=== PATIENT | female | born 1935 | race Two or more races ===

== ENCOUNTER 2020-08-04 11:17 | Inpatient (IN) | payer OTHER ==
[~2020-08-04] VITALS: Ht 157.5 cm; Wt 74.0 kg
[2020-08-04 11:48] LABS: Basophils # (auto) 0.1 10 ^3/uL (0-0.2); Basophils % (auto) 0.5 % (0.0-2.0); Eosinophils # (auto) 0.1 10 ^3/uL (0-0.8); Eosinophils % (auto) 0.5 % (0.0-7.0); Hematocrit 38.2 % (36.0-46.0); Hemoglobin 12.8 g/dL (12.2-16.2); Lymphocytes # (auto) 2.4 10 ^3/uL (0.4-5.4); Lymphocytes % (auto) 21.7 % (10.0-50.0); Mean Corpuscular Hemoglobin 29.7 pg (28.0-32.0); Mean Corpuscular Hgb Conc. 33.5 g/dL (32.0-36.0); Mean Corpuscular Volume 88.8 fL (80.0-100.0); Monocytes # (auto) 1.2 10 ^3/uL (0-1.3); Monocytes % (auto) 10.6 % (0.0-12.0); Neutrophils # (auto) 7.5 10 ^3/uL (1.6-8.6); Neutrophils % (auto) 66.7 % (37.0-80.0); Nucleated Red Blood Cells % 0.1 %; Platelet Count (auto) 242 10^3/uL (140-450); Red Cell Distribution Width 13.7 % (11.8-14.3); White Blood Cell 11.2 10^3/uL (4.4-10.8)
[2020-08-04 12:04] LABS: INR 1.18 (0.9-1.15); Partial Thromboplastin Time 23.6 sec (23.0-31.2)
[2020-08-04 12:12] LABS: Albumin 3.2 g/dL (3.4-5.0); Calcium 8.2 mg/dL (8.5-10.1); Potassium 3.5 mmol/L (3.5-5.1)
[2020-08-04 12:19] LABS: BUN/Creatinine Ratio 27.3; Bilirubin, Total 1.6 mg/dL (0.2-1.0); Total Protein 7.2 g/dL (6.4-8.2)
[2020-08-04] MEDS ORDERED: AMIODARONE 450mg/250ml AE 250 ML IV SCH (12:30)
[2020-08-04] MEDS ORDERED: AMIODARONE HCL 150 MG in D5W 5% 100 ML IV ONE (12:30)
[2020-08-04] MEDS ORDERED: FUROSEMIDE 40 MG/4 ML VIAL IV ONE (13:00)
[2020-08-04 14:25] LABS: Urine Bacteria MANY /hpf (None Seen); Urine Blood Negative /uL (Negative); Urine Hyaline Cast MANY /lpf (0 - 2); Urine Mucus MANY (None Seen); Urine Specific Gravity 1.027 (1.001-1.035); Urine WBC 4 /hpf (0 - 5)
[2020-08-04] MEDS ORDERED: NITROGLYCERIN 0.4 MG SL TAB SL PRN (15:00)
[2020-08-04] MEDS ORDERED: ONDANSETRON HCL 4 MG/2 ML VIAL IV PRN (15:00)
[2020-08-04] MEDS ORDERED: MORPHINE SULF INJ 2 MG/ML SYRINGE 1ML IV PRN (15:00)
[2020-08-04] MEDS: FUROSEMIDE 40 MG/4 ML VIAL IV SCH (18:14)
[2020-08-04] MEDS: AMIODARONE 450mg/250ml AE 250 ML IV SCH (18:47)
[2020-08-04] MEDS: ENOXAPARIN SOD 100 MG/1 ML SYRINGE SC SCH (22:26)
[2020-08-04] MEDS: ATORVASTATIN 20 MG TAB PO SCH (22:26)
[2020-08-04] MEDS ORDERED: AMIODARONE 450mg/250ml AE 250 ML IV ONE (22:44)
[2020-08-05] VITALS (16 sets, daily range): BP systolic 118–141; BP diastolic 63–100
[2020-08-05] MEDS: FUROSEMIDE 40 MG/4 ML VIAL IV SCH ×2 (06:30→19:00)
[2020-08-05] MEDS: AMIODARONE 450mg/250ml AE 250 ML IV SCH ×2 (09:30→13:51)
[2020-08-05] MEDS: ASPirin 81 mg TAB PO SCH (09:58)
[2020-08-05] MEDS: ENOXAPARIN SOD 100 MG/1 ML SYRINGE SC SCH (09:58)
[2020-08-05] MEDS: LISINOPRIL 5 MG TAB PO SCH (09:58)
[2020-08-05] MEDS ORDERED: METOPROLOL SUCCINATE XL 50 MG TAB PO ONE (13:30)
[2020-08-05] MEDS ORDERED: OXYB10TA14 PO (18:05)
[2020-08-05] MEDS ORDERED: AMLO-489 PO (18:05)
[2020-08-05] MEDS ORDERED: LEV100T PO (18:05)
[2020-08-05] MEDS ORDERED: ENOXAPARIN SOD 80 MG/0.8ML SYRINGE SC SCH (22:00)
[2020-08-05] MEDS: ATORVASTATIN 20 MG TAB PO SCH (22:09)
[2020-08-05] MEDS: guaiFENesin-DM 100/10mg/5ml SYR PO PRN (22:10)
[2020-08-06] VITALS (24 sets, daily range): BP systolic 116–157; BP diastolic 53–95
[2020-08-06] MEDS ORDERED: HYALURONIDASE 150 UNIT/1 ML SUBCUT ONE (01:45)
[2020-08-06] MEDS: AMIODARONE 450mg/250ml AE 250 ML IV SCH (05:20)
[2020-08-06] MEDS: FUROSEMIDE 40 MG/4 ML VIAL IV SCH (05:49)
[2020-08-06 06:06] LABS: BUN/Creatinine Ratio 29.6; Calcium 7.9 mg/dL (8.5-10.1)
[2020-08-06 06:08] LABS: Potassium 2.7 mmol/L (3.5-5.1)
[2020-08-06] MEDS: POTASSIUM CHL 20MEQ/100ML 100 ML IV SCH ×3 (07:05→12:38)
[2020-08-06] MEDS ORDERED: POTASSIUM CHL 10 Meq TABLET PO SCH (10:00)
[2020-08-06] MEDS ORDERED: SPIRONOLACTONE 25 MG TAB PO ONE (10:00)
[2020-08-06] MEDS ORDERED: POTASSIUM CHLORIDE 40 MEQ, LIDOCAINE 1% (LOCAL ANESTH.) 4 ML in SODIUM CHL 0.9% 250 ML IV ONE (10:15)
[2020-08-06] MEDS ORDERED: AMIODARONE HCL 200 MG TAB PO ONE (10:15)
[2020-08-06] MEDS ORDERED: POTASSIUM EFFERVESENT TAB 25 MEQ PO ONE (10:15)
[2020-08-06] MEDS: ASPirin 81 mg TAB PO SCH (10:44)
[2020-08-06] MEDS: METOPROLOL SUCCINATE XL 50 MG TAB PO SCH (10:45)
[2020-08-06] MEDS: MAGNESIUM SULFATE 1GM/100ML 100 ML IV SCH ×2 (10:56→12:42)
[2020-08-06] MEDS: guaiFENesin-DM 100/10mg/5ml SYR PO PRN ×2 (10:57→21:22)
[2020-08-06] MEDS: LISINOPRIL 5 MG TAB PO SCH (12:42)
[2020-08-06] MEDS: FUROSEMIDE 20 MG/2 ML VIAL IV SCH (19:32)
[2020-08-06] MEDS: POTASSIUM CHL 20 Meq TABLET PO SCH (21:23)
[2020-08-06] MEDS: ATORVASTATIN 20 MG TAB PO SCH (21:25)
[2020-08-06] MEDS: AMIODARONE HCL 200 MG TAB PO SCH (21:25)
[2020-08-06] MEDS: MAGNESIUM OXIDE 400 MG TAB PO SCH (21:25)
[2020-08-07] VITALS (14 sets, daily range): BP systolic 93–154; BP diastolic 47–95
[2020-08-07] MEDS: FUROSEMIDE 20 MG/2 ML VIAL IV SCH (06:20)
[2020-08-07 09:32] LABS: Basophils # (auto) 0 10 ^3/uL (0-0.2); Basophils % (auto) 0.3 % (0.0-2.0); Eosinophils # (auto) 0 10 ^3/uL (0-0.8); Eosinophils % (auto) 0.4 % (0.0-7.0); Hematocrit 39.4 % (36.0-46.0); Hemoglobin 13.1 g/dL (12.2-16.2); Lymphocytes # (auto) 1.8 10 ^3/uL (0.4-5.4); Lymphocytes % (auto) 17.5 % (10.0-50.0); Mean Corpuscular Hgb Conc. 33.3 g/dL (32.0-36.0); Mean Corpuscular Volume 90.1 fL (80.0-100.0); Monocytes # (auto) 0.8 10 ^3/uL (0-1.3); Monocytes % (auto) 7.4 % (0.0-12.0); Neutrophils # (auto) 7.7 10 ^3/uL (1.6-8.6); Neutrophils % (auto) 74.4 % (37.0-80.0); Platelet Count (auto) 239 10^3/uL (140-450); Red Blood Cells 4.37 10^6/uL (4.0-5.20); Red Cell Distribution Width 13.5 % (11.8-14.3); White Blood Cell 10.4 10^3/uL (4.4-10.8)
[2020-08-07 09:53] LABS: Calcium 7.7 mg/dL (8.5-10.1); Potassium 3.4 mmol/L (3.5-5.1)
[2020-08-07] MEDS: ASPirin 81 mg TAB PO SCH (10:00)
[2020-08-07] MEDS: POTASSIUM CHL 20 Meq TABLET PO SCH ×2 (10:19→22:42)
[2020-08-07] MEDS: LISINOPRIL 5 MG TAB PO SCH (10:20)
[2020-08-07] MEDS: MAGNESIUM OXIDE 400 MG TAB PO SCH ×2 (10:20→22:42)
[2020-08-07] MEDS: AMIODARONE HCL 200 MG TAB PO SCH ×2 (10:20→22:42)
[2020-08-07] MEDS: METOPROLOL SUCCINATE XL 50 MG TAB PO SCH (10:23)
[2020-08-07] MEDS ORDERED: HYALURONIDASE 150 UNIT/1 ML SUBCUT ONE (11:00)
[2020-08-07] MEDS: guaiFENesin-DM 100/10mg/5ml SYR PO PRN ×2 (14:07→22:43)
[2020-08-07] MEDS: SPIRONOLACTONE 25 MG TAB PO SCH (17:26)
[2020-08-07] MEDS: ATORVASTATIN 20 MG TAB PO SCH (22:42)
[2020-08-08 05:10] VITALS: BP 108/69
[2020-08-08] MEDS: guaiFENesin-DM 100/10mg/5ml SYR PO PRN ×2 (05:37→11:18)
[2020-08-08 07:24] LABS: BUN/Creatinine Ratio 34.1; Calcium 7.7 mg/dL (8.5-10.1); Potassium 3.8 mmol/L (3.5-5.1)
[2020-08-08 09:00] VITALS: BP 98/61
[2020-08-08] MEDS: ASPirin 81 mg TAB PO SCH (09:02)
[2020-08-08] MEDS: MAGNESIUM OXIDE 400 MG TAB PO SCH ×2 (09:02→22:57)
[2020-08-08] MEDS: POTASSIUM CHL 20 Meq TABLET PO SCH (09:03)
[2020-08-08] MEDS: FUROSEMIDE 40 MG TAB PO SCH (09:03)
[2020-08-08] MEDS: METOPROLOL SUCCINATE XL 50 MG TAB PO SCH (09:04)
[2020-08-08] MEDS: AMIODARONE HCL 200 MG TAB PO SCH ×2 (09:05→22:57)
[2020-08-08] MEDS: LISINOPRIL 5 MG TAB PO SCH (09:05)
[2020-08-08] MEDS ORDERED: PROMETHAZINE W/CODEINE 5 ML ORAL SYRUP PO PRN (12:00)
[2020-08-08 13:00] VITALS: BP 135/68
[2020-08-08 17:00] VITALS: BP 112/66
[2020-08-08] MEDS: SPIRONOLACTONE 25 MG TAB PO SCH (19:08)
[2020-08-08] MEDS: Ensure HIGH Protein Chocolate 8oz Bottle PO SCH (19:08)
[2020-08-08 21:53] VITALS: BP 106/65
[2020-08-08] MEDS: ATORVASTATIN 20 MG TAB PO SCH (22:57)
[2020-08-09 05:10] VITALS: BP 121/61
[2020-08-09 08:00] VITALS: BP 143/84
[2020-08-09] MEDS: Ensure HIGH Protein Chocolate 8oz Bottle PO SCH (08:00)
[2020-08-09 09:00] VITALS: BP 143/84
[2020-08-09] MEDS ORDERED: POTASSIUM CHL 10 Meq TABLET PO SCH (10:00)
[2020-08-09] MEDS: ASPirin 81 mg TAB PO SCH (10:09)
[2020-08-09] MEDS: AMIODARONE HCL 200 MG TAB PO SCH (10:10)
[2020-08-09] MEDS: FUROSEMIDE 40 MG TAB PO SCH (10:11)
[2020-08-09] MEDS: METOPROLOL SUCCINATE XL 50 MG TAB PO SCH (10:11)
[2020-08-09] MEDS: MAGNESIUM OXIDE 400 MG TAB PO SCH (10:11)
[2020-08-09] MEDS ORDERED: AMIO200T4 PO (12:22)
[2020-08-09] MEDS ORDERED: METO-6 PO (12:22)
[2020-08-09] MEDS ORDERED: FURO40TA4 PO (12:22)
[2020-08-09] MEDS ORDERED: RIV15T PO (12:22)
[2020-08-09] MEDS ORDERED: SPIR25TA PO (12:22)
[2020-08-09 13:08] VITALS: BP 110/84
[2020-08-09 14:21] VITALS: BP 110/84
[2020-08-09] MEDS ORDERED: OXYBUTYNIN CHL 5 MG TAB PO SCH (22:00)
[2020-08-10] MEDS ORDERED: LEVOTHYROXINE SODIUM 100 MCG TAB PO SCH (07:00)
== END 2020-08-09 15:30 | disposition home health service (06) | DRG 291 ==
LOC: ER 11:17 → DOU IN ADS 14:46 → TELE 23:59 → TELE-EAST 08-05 08:39 → DOU IN ICU 08-05 08:45 → TELE-EAST 08-07 15:16
PROVIDERS: ADMIT Hospitalist; ATTEND Hospitalist
DX: I13.0 Hypertensive heart and chronic kidney disease with heart failure and stage 1 through stage 4 chronic kidney disease, or unspecified chronic kidney disease (principal); I50.43 Acute on chronic combined systolic (congestive) and diastolic (congestive) heart failure; Z20.822 Contact with and (suspected) exposure to COVID-19; I44.7 Left bundle-branch block, unspecified; I48.91 Unspecified atrial fibrillation; N18.9 Chronic kidney disease, unspecified; R80.9 Proteinuria, unspecified; I08.0 Rheumatic disorders of both mitral and aortic valves; I25.10 Atherosclerotic heart disease of native coronary artery without angina pectoris; I27.20 Pulmonary hypertension, unspecified; Z79.01 Long term (current) use of anticoagulants; Z79.899 Other long term (current) drug therapy; Z79.891 Long term (current) use of opiate analgesic
CPT/HCPCS: 36415; 71045; 80048; 80053; 81001; 82962; 83880; 84484; 85025; 85610; 85730; 87081; 87426; 93005; 93306; 96365; 96367; 96368; 96372; 96375; 96376; 97116; 97530; 99291; G0378; J3470; J3480; J7060

== ENCOUNTER 2021-03-04 09:41 | Inpatient (IN) | payer OTHER ==
[~2021-03-04] VITALS: Ht 154.9 cm; Wt 68.4 kg
[~2021-03-04 09:41] MED LIST: AMIO200T4 PO; FURO40TA4 PO; LEV100T PO; METO-6 PO; OXYB10TA14 PO; RIV15T PO; SPIR25TA PO
[2021-03-04 10:41] LABS: Basophils # (auto) 0 10 ^3/uL (0-0.2); Basophils % (auto) 0.5 % (0.0-2.0); Eosinophils # (auto) 0.1 10 ^3/uL (0-0.8); Eosinophils % (auto) 1.6 % (0.0-7.0); Hematocrit 37.2 % (36.0-46.0); Hemoglobin 12.8 g/dL (12.2-16.2); Lymphocytes # (auto) 2.5 10 ^3/uL (0.4-5.4); Lymphocytes % (auto) 29.6 % (10.0-50.0); Mean Corpuscular Hemoglobin 31.4 pg (28.0-32.0); Mean Corpuscular Hgb Conc. 34.3 g/dL (32.0-36.0); Mean Corpuscular Volume 91.5 fL (80.0-100.0); Monocytes # (auto) 0.7 10 ^3/uL (0-1.3); Monocytes % (auto) 8.3 % (0.0-12.0); Neutrophils # (auto) 5.2 10 ^3/uL (1.6-8.6); Nucleated Red Blood Cells % 0.1 %; Red Blood Cells 4.07 10^6/uL (4.0-5.20); Red Cell Distribution Width 13.5 % (11.8-14.3); White Blood Cell 8.6 10^3/uL (4.4-10.8)
[2021-03-04 10:58] LABS: Albumin 3.3 g/dL (3.4-5.0); Calcium 8.4 mg/dL (8.5-10.1)
[2021-03-04 11:03] LABS: Bilirubin, Total 0.5 mg/dL (0.2-1.0); Total Protein 7.3 g/dL (6.4-8.2)
[2021-03-04 11:35] LABS: Potassium 2.9 mmol/L (3.5-5.1)
[2021-03-04 11:50] LABS: Urine Bacteria FEW /hpf (None Seen); Urine Blood 1+ /uL (Negative); Urine Hyaline Cast FEW /lpf (0 - 2); Urine Specific Gravity 1.005 (1.001-1.035); Urine WBC 86 /hpf (0 - 5)
[2021-03-04] MEDS ORDERED: DOPamine 1600MCG/ML D5W 250 ML IV ONE (12:00)
[2021-03-04] MEDS ORDERED: GLUCAGON HYDROCHLORIDE (RDNA) 1 MG VIAL IV ONE (12:15)
[2021-03-04] MEDS ORDERED: POTASSIUM CHL 20MEQ/100ML 100 ML IV ONE (12:15)
[2021-03-04] MEDS ORDERED: POTASSIUM EFFERVESENT TAB 25 MEQ PO ONE (12:15)
[2021-03-04] MEDS ORDERED: fentaNYL CITRATE 100 MCG/2 ML VL ONE (13:05)
[2021-03-04] MEDS ORDERED: MIDAZOLAM HCL 2MG/2ML 2ml VIAL (1mg/ml) ONE (13:05)
[2021-03-04] MEDS ORDERED: VANCOMYCIN HCL 1000 MG VL ONE (13:05)
[2021-03-04] MEDS ORDERED: VANCOMYCIN 1GM/250ML 250 ML IV ONE (13:05)
[2021-03-04] MEDS ORDERED: LIDOCAINE 2%HCL (LOCAL ANESTH.) INJ 20ML MDV ONE (13:06)
[2021-03-04 13:49] LABS: BUN/Creatinine Ratio 16.1
[2021-03-04] MEDS ORDERED: ONDANSETRON HCL 4 MG/2 ML VIAL ONE (15:23)
[2021-03-04] MEDS ORDERED: MORPHINE SULFATE INJECTION 2 MG/ML SYRG IV PRN (15:30)
[2021-03-04] MEDS ORDERED: NITROGLYCERIN 0.4 MG SL TAB SL PRN (15:30)
[2021-03-04] MEDS: FUROSEMIDE 40 MG/4 ML VIAL IV SCH (18:50)
[2021-03-04 20:17] LABS: Magnesium 1.9 mg/dL (1.6-2.6)
[2021-03-04] MEDS: SACUBITRIL-VALSARTAN 24mg/26mg TAB PO SCH (21:04)
[2021-03-04] MEDS ORDERED: traMADol HCL 50 MG TAB PO PRN (22:00)
[2021-03-04 22:22] VITALS: BP 149/75
[2021-03-05 05:33] VITALS: BP 122/61
[2021-03-05] MEDS: FUROSEMIDE 40 MG/4 ML VIAL IV SCH ×2 (05:45→18:09)
[2021-03-05 09:00] VITALS: BP 127/63
[2021-03-05] MEDS ORDERED: RIVAROXABAN 15 MG TAB PO SCH (10:00)
[2021-03-05] MEDS ORDERED: METOPROLOL TARTRATE 50 MG TAB PO SCH (10:00)
[2021-03-05] MEDS: SACUBITRIL-VALSARTAN 24mg/26mg TAB PO SCH ×2 (10:23→21:20)
[2021-03-05] MEDS ORDERED: LEVO25TA6 PO (12:12)
[2021-03-05] MEDS ORDERED: SPIR25TA PO (12:13)
[2021-03-05 13:00] VITALS: BP 128/72
[2021-03-05 17:00] VITALS: BP 122/59
[2021-03-05] MEDS: METOCLOPRAMIDE HCL 5MG/ml INJ 2ml VIAL IV SCH (18:08)
[2021-03-05 22:00] VITALS: BP 114/57
[2021-03-06 05:00] VITALS: BP 109/60
[2021-03-06] MEDS: METOCLOPRAMIDE HCL 5MG/ml INJ 2ml VIAL IV SCH ×2 (06:22)
[2021-03-06] MEDS: FUROSEMIDE 40 MG/4 ML VIAL IV SCH (06:23)
[2021-03-06 09:00] VITALS: BP 114/59
[2021-03-06] MEDS ORDERED: METOPROLOL SUCCINATE XL 50 MG TAB PO SCH ×2 (10:00)
[2021-03-06] MEDS ORDERED: PANTOPRAZOLE 40 MG/10 ML VIAL INJ IV SCH (10:00)
[2021-03-06] MEDS ORDERED: APIXABAN 2.5 MG TAB PO SCH (10:00)
[2021-03-06] MEDS ORDERED: POTASSIUM CHLORIDE 8 MEQ TAB PO SCH (10:00)
[2021-03-06] MEDS: SACUBITRIL-VALSARTAN 24mg/26mg TAB PO SCH (10:01)
[2021-03-06] MEDS ORDERED: SACU1TAB PO (10:20)
[2021-03-06] MEDS ORDERED: FURO40TA4 PO (10:20)
[2021-03-06] MEDS ORDERED: APIX2.5T PO (10:20)
[2021-03-06] MEDS ORDERED: METO-6 PO (10:20)
[2021-03-06 10:25] VITALS: BP 114/59
[2021-03-06] MEDS ORDERED: POTASSIUM CHL 20 Meq TABLET PO ONE (11:30)
[2021-03-06] MEDS ORDERED: POTASSIUM EFFERVESENT TAB 25 MEQ PO ONE (11:30)
== END 2021-03-06 11:40 | disposition home or self-care (01) | DRG 242 ==
LOC: ER 09:41 → TELE 15:29 → TELE-CENTR 17:13
PROVIDERS: ADMIT Internal Medicine; ATTEND Hospitalist
PROC: 0JH606Z Insertion of Pacemaker, Dual Chamber into Chest Subcutaneous Tissue and Fascia, Open Approach (ICD-10-PCS; principal; 2021-03-04)
PROC: 02H63JZ Insertion of Pacemaker Lead into Right Atrium, Percutaneous Approach (ICD-10-PCS; 2021-03-04)
PROC: 02HK3JZ Insertion of Pacemaker Lead into Right Ventricle, Percutaneous Approach (ICD-10-PCS; 2021-03-04)
DX: I49.5 Sick sinus syndrome (principal); I50.23 Acute on chronic systolic (congestive) heart failure; I44.2 Atrioventricular block, complete; I42.9 Cardiomyopathy, unspecified; I27.20 Pulmonary hypertension, unspecified; I48.0 Paroxysmal atrial fibrillation; R42 Dizziness and giddiness; Z20.822 Contact with and (suspected) exposure to COVID-19; I11.0 Hypertensive heart disease with heart failure
CPT/HCPCS: 33208; 36415; 71045; 80053; 80061; 81001; 83735; 83880; 84443; 84484; 85025; 87426; 93005; 93306; 96361; 96374; 96375; 97163; 99152; 99153; 99291; C1785; C9113; G0378; J2250; J2405; J3480

== ENCOUNTER 2022-02-19 10:41 | Emergency (ER) | payer OTHER ==
[~2022-02-19] VITALS: Ht 157.5 cm; Wt 79.9 kg
[~2022-02-19 10:41] MED LIST changes: -AMIO200T4 PO; +APIX2.5T PO; -LEV100T PO; +LEVO25TA6 PO; -OXYB10TA14 PO; -RIV15T PO; +SACU1TAB PO; -SPIR25TA PO
[2022-02-19 11:31] LABS: Basophils # (auto) 0.1 10 ^3/uL (0-0.2); Basophils % (auto) 0.8 % (0.0-2.0); Eosinophils # (auto) 0 10 ^3/uL (0-0.8); Eosinophils % (auto) 0.2 % (0.0-7.0); Hematocrit 36.4 % (36.0-46.0); Hemoglobin 11.8 g/dL (12.2-16.2); Lymphocytes # (auto) 1.8 10 ^3/uL (0.4-5.4); Mean Corpuscular Hemoglobin 29.4 pg (28.0-32.0); Mean Corpuscular Hgb Conc. 32.5 g/dL (32.0-36.0); Mean Corpuscular Volume 90.6 fL (80.0-100.0); Monocytes # (auto) 0.6 10 ^3/uL (0-1.3); Monocytes % (auto) 7.5 % (0.0-12.0); Neutrophils # (auto) 5.4 10 ^3/uL (1.6-8.6); Neutrophils % (auto) 68.5 % (37.0-80.0); Nucleated Red Blood Cells % 0.1 %; Red Blood Cells 4.02 10^6/uL (4.0-5.20); Red Cell Distribution Width 15.1 % (11.8-14.3); White Blood Cell 7.8 10^3/uL (4.4-10.8)
[2022-02-19 11:50] LABS: Albumin 3.1 g/dL (3.4-5.0); Calcium 8.2 mg/dL (8.5-10.1); Potassium 3.9 mmol/L (3.5-5.1)
[2022-02-19 11:52] LABS: BUN/Creatinine Ratio 16.3; Total Protein 6.6 g/dL (6.4-8.2)
[2022-02-19 12:54] LABS: INR 1.27 (0.9-1.15); Partial Thromboplastin Time 26.2 sec (24.6-33.4)
[2022-02-19] MEDS ORDERED: AZIT250T9 PO (16:36)
[2022-02-19 17:55] VITALS: BP 118/70
== END 2022-02-19 17:57 | disposition home or self-care (01) ==
LOC: ER 10:45
DX: J18.9 Pneumonia, unspecified organism (principal); I11.0 Hypertensive heart disease with heart failure; I50.9 Heart failure, unspecified; E78.5 Hyperlipidemia, unspecified; Z95.0 Presence of cardiac pacemaker; Z79.899 Other long term (current) drug therapy; Z20.822 Contact with and (suspected) exposure to COVID-19
CPT/HCPCS: 36415; 71045; 80053; 83880; 84484; 85025; 85610; 85730; 87426; 87804; 93005

== ENCOUNTER 2022-04-17 09:37 | Inpatient (IN) | payer OTHER ==
[~2022-04-17] VITALS: Ht 160 cm; Wt 80.3 kg
[~2022-04-17 09:37] MED LIST changes: +AZIT250T9 PO
[2022-04-17 10:46] LABS: Basophils # (auto) 0 10 ^3/uL (0-0.2); Basophils % (auto) 0.5 % (0.0-2.0); Eosinophils # (auto) 0 10 ^3/uL (0-0.8); Eosinophils % (auto) 0.5 % (0.0-7.0); Hematocrit 40.8 % (36.0-46.0); Hemoglobin 13.2 g/dL (12.2-16.2); Mean Corpuscular Hemoglobin 29.4 pg (28.0-32.0); Mean Corpuscular Hgb Conc. 32.3 g/dL (32.0-36.0); Monocytes # (auto) 0.5 10 ^3/uL (0-1.3); Monocytes % (auto) 8.6 % (0.0-12.0); Neutrophils # (auto) 3.5 10 ^3/uL (1.6-8.6); Neutrophils % (auto) 57.4 % (37.0-80.0); Nucleated Red Blood Cells % 0.2 %; Red Blood Cells 4.49 10^6/uL (4.0-5.20); White Blood Cell 6.2 10^3/uL (4.4-10.8)
[2022-04-17 11:02] LABS: Albumin 3.3 g/dL (3.4-5.0); Calcium 8.4 mg/dL (8.5-10.1); Potassium 3.3 mmol/L (3.5-5.1)
[2022-04-17 11:04] LABS: Bilirubin, Total 0.9 mg/dL (0.2-1.0); Total Protein 6.2 g/dL (6.4-8.2)
[2022-04-17] MEDS ORDERED: FUROSEMIDE 100 MG/10ML VIAL IV ONE (13:45)
[2022-04-17] MEDS ORDERED: POTASSIUM EFFERVESENT TAB 25 MEQ PO ONE (13:45)
[2022-04-17] MEDS ORDERED: NITROGLYCERIN 0.4 MG SL TAB SL PRN (14:00)
[2022-04-17] MEDS ORDERED: MORPHINE SULFATE INJ 2 MG/ml SYRG IV PRN (14:00)
[2022-04-17] MEDS ORDERED: ONDANSETRON HCL 4 MG/2 ML VIAL IV PRN (14:00)
[2022-04-17] MEDS ORDERED: ACETAMINOPHEN 325 MG TAB PO PRN (14:00)
[2022-04-17 17:00] LABS: Urine Specific Gravity 1.022 (1.001-1.035)
[2022-04-17 17:01] LABS: Urine Blood Negative /uL (Negative); Urine WBC 50 /hpf (0 - 5)
[2022-04-17 17:02] LABS: Urine Bacteria FEW /hpf (None Seen); Urine Hyaline Cast FEW /lpf (0 - 2); Urine WBC Clumps FEW /hpf (None Seen)
[2022-04-17] MEDS: HYDROcodone-ACET 5/325MG TAB PO PRN (17:25)
[2022-04-17] MEDS: FUROSEMIDE 40 MG/4 ML VIAL IV SCH (18:31)
[2022-04-18] MEDS: HYDROcodone-ACET 5/325MG TAB PO PRN (00:02)
[2022-04-18 05:58] LABS: Basophils # (auto) 0 10 ^3/uL (0-0.2); Basophils % (auto) 0.6 % (0.0-2.0); Eosinophils # (auto) 0 10 ^3/uL (0-0.8); Eosinophils % (auto) 0.6 % (0.0-7.0); Hematocrit 42.2 % (36.0-46.0); Hemoglobin 12.6 g/dL (12.2-16.2); Lymphocytes # (auto) 1.8 10 ^3/uL (0.4-5.4); Lymphocytes % (auto) 26.7 % (10.0-50.0); Mean Corpuscular Hemoglobin 29.2 pg (28.0-32.0); Mean Corpuscular Hgb Conc. 29.8 g/dL (32.0-36.0); Mean Corpuscular Volume 97.9 fL (80.0-100.0); Monocytes # (auto) 0.6 10 ^3/uL (0-1.3); Monocytes % (auto) 9.2 % (0.0-12.0); Neutrophils # (auto) 4.3 10 ^3/uL (1.6-8.6); Neutrophils % (auto) 62.9 % (37.0-80.0); Nucleated Red Blood Cells % 0.5 %; Red Blood Cells 4.31 10^6/uL (4.0-5.20); White Blood Cell 6.8 10^3/uL (4.4-10.8)
[2022-04-18 05:59] LABS: Albumin 2.8 g/dL (3.4-5.0); Calcium 8.4 mg/dL (8.5-10.1); Potassium 3.9 mmol/L (3.5-5.1)
[2022-04-18] MEDS: FUROSEMIDE 40 MG/4 ML VIAL IV SCH ×2 (06:03→19:05)
[2022-04-18 06:04] LABS: BUN/Creatinine Ratio 28.6; Bilirubin, Total 0.9 mg/dL (0.2-1.0); Total Protein 5.9 g/dL (6.4-8.2)
[2022-04-18 08:37] LABS: INR 1.29 (0.9-1.15); Partial Thromboplastin Time 25.5 sec (24.6-33.4)
[2022-04-18] MEDS: ENOXAPARIN SOD 40 MG/0.4 ML SYRINGE SC SCH (09:39)
[2022-04-18] MEDS ORDERED: DIGOXIN (250MCG/ML) 2 ML AMPULE IV ONE (13:16)
[2022-04-18] MEDS ORDERED: METO25TA93 PO (13:36)
[2022-04-18] MEDS ORDERED: ROSU1TAB14 PO (13:36)
[2022-04-18] MEDS ORDERED: LEVO50TA7 PO (13:36)
[2022-04-18] MEDS ORDERED: POTA10TA32 PO (13:36)
[2022-04-18 14:10] VITALS: BP 101/58
[2022-04-18] MEDS: METOPROLOL TARTRATE 25 MG TAB PO SCH ×2 (16:23→21:39)
[2022-04-18 19:45] VITALS: BP 114/53
[2022-04-18 22:00] VITALS: BP 114/53
[2022-04-19 05:00] VITALS: BP 106/54
[2022-04-19] MEDS: FUROSEMIDE 40 MG/4 ML VIAL IV SCH ×2 (05:12→18:02)
[2022-04-19 06:52] LABS: Basophils # (auto) 0 10 ^3/uL (0-0.2); Basophils % (auto) 0.5 % (0.0-2.0); Eosinophils # (auto) 0 10 ^3/uL (0-0.8); Eosinophils % (auto) 0.6 % (0.0-7.0); Hematocrit 37.8 % (36.0-46.0); Hemoglobin 12.3 g/dL (12.2-16.2); Lymphocytes # (auto) 1.8 10 ^3/uL (0.4-5.4); Lymphocytes % (auto) 27.2 % (10.0-50.0); Mean Corpuscular Hemoglobin 29.3 pg (28.0-32.0); Mean Corpuscular Hgb Conc. 32.6 g/dL (32.0-36.0); Mean Corpuscular Volume 89.9 fL (80.0-100.0); Monocytes # (auto) 0.6 10 ^3/uL (0-1.3); Monocytes % (auto) 9.8 % (0.0-12.0); Neutrophils % (auto) 61.9 % (37.0-80.0); Nucleated Red Blood Cells % 0.1 %; White Blood Cell 6.5 10^3/uL (4.4-10.8)
[2022-04-19 07:05] LABS: BUN/Creatinine Ratio 29.9; Calcium 8.3 mg/dL (8.5-10.1); Magnesium 1.7 mg/dL (1.6-2.6); Potassium 3.5 mmol/L (3.5-5.1)
[2022-04-19 09:00] VITALS: BP 106/68
[2022-04-19] MEDS: METOPROLOL TARTRATE 25 MG TAB PO SCH ×2 (10:00→21:04)
[2022-04-19] MEDS: ENOXAPARIN SOD 40 MG/0.4 ML SYRINGE SC SCH (10:51)
[2022-04-19 13:00] VITALS: BP 110/64
[2022-04-19 21:24] VITALS: BP 109/60
[2022-04-20 04:37] VITALS: BP 117/80
[2022-04-20] MEDS: FUROSEMIDE 40 MG/4 ML VIAL IV SCH ×2 (05:33→17:52)
[2022-04-20] MEDS: HYDROcodone-ACET 5/325MG TAB PO PRN (06:01)
[2022-04-20 09:00] VITALS: BP 121/58
[2022-04-20] MEDS: METOPROLOL TARTRATE 25 MG TAB PO SCH ×2 (10:42→21:41)
[2022-04-20] MEDS: ENOXAPARIN SOD 40 MG/0.4 ML SYRINGE SC SCH (10:43)
[2022-04-20 13:00] VITALS: BP 115/57
[2022-04-20] MEDS ORDERED: ALBUTEROL SULF 2.5 MG/0.5ML(0.5%) NEB SOLN NEB PRN (15:00)
[2022-04-20] MEDS ORDERED: IPRATROPIUM BROM 0.5 MG/2.5ML INH SOL NEB PRN (15:00)
[2022-04-20 15:55] VITALS: BP 115/57
[2022-04-20 17:00] VITALS: BP 110/60
[2022-04-20 22:00] VITALS: BP 108/54
[2022-04-21 05:00] VITALS: BP 114/58
[2022-04-21] MEDS: FUROSEMIDE 40 MG/4 ML VIAL IV SCH (05:50)
[2022-04-21 08:30] VITALS: BP 134/72
[2022-04-21] MEDS: METOPROLOL TARTRATE 25 MG TAB PO SCH (09:57)
[2022-04-21] MEDS: ENOXAPARIN SOD 40 MG/0.4 ML SYRINGE SC SCH (09:58)
[2022-04-21 13:00] VITALS: BP 115/69
[2022-04-21 16:08] VITALS: BP 115/69
== END 2022-04-21 17:03 | disposition home or self-care (01) | DRG 291 ==
LOC: ER 09:37 → TELE 13:54 → TELE-E-ADS 04-18 11:57 → TELE-WESTW 04-18 19:36 → OBSVTOIN 04-19 11:25 → UNDODISIN 04-21 16:30
PROVIDERS: ADMIT Internal Medicine; ATTEND Internal Medicine
PROC: 0W9B3ZZ Drainage of Left Pleural Cavity, Percutaneous Approach (ICD-10-PCS; principal; 2022-04-18)
DX: I13.0 Hypertensive heart and chronic kidney disease with heart failure and stage 1 through stage 4 chronic kidney disease, or unspecified chronic kidney disease (principal); I50.23 Acute on chronic systolic (congestive) heart failure; J96.21 Acute and chronic respiratory failure with hypoxia; J98.11 Atelectasis; N17.9 Acute kidney failure, unspecified; I42.9 Cardiomyopathy, unspecified; E88.09 Other disorders of plasma-protein metabolism, not elsewhere classified; I48.91 Unspecified atrial fibrillation; Z20.822 Contact with and (suspected) exposure to COVID-19; N18.9 Chronic kidney disease, unspecified; R74.01 Elevation of levels of liver transaminase levels; J44.9 Chronic obstructive pulmonary disease, unspecified; Z95.0 Presence of cardiac pacemaker
CPT/HCPCS: 36415; 36600; 71045; 76604; 76942; 80048; 80053; 81001; 82805; 83735; 83880; 83986; 84484; 85025; 85610; 85730; 87070; 87205; 87426; 89051; 93005; 93306; 96374; 97110; 97116; 97530; G0378

== ENCOUNTER 2022-07-08 10:13 | Inpatient (IN) | payer OTHER ==
[~2022-07-08] VITALS: Ht 157.5 cm; Wt 81.6 kg
[~2022-07-08 10:13] MED LIST changes: -AZIT250T9 PO; -LEVO25TA6 PO; +LEVO50TA7 PO; +METO25TA93 PO; +POTA10TA32 PO; +ROSU1TAB14 PO
[2022-07-08] MEDS ORDERED: FUROSEMIDE 40 MG/4 ML VIAL IV ONE (10:45)
[2022-07-08 10:51] LABS: Basophils # (auto) 0.1 10 ^3/uL (0-0.2); Eosinophils # (auto) 0 10 ^3/uL (0-0.8); Eosinophils % (auto) 0.6 % (0.0-7.0); Hematocrit 40.9 % (36.0-46.0); Hemoglobin 13.1 g/dL (12.2-16.2); Lymphocytes # (auto) 1.6 10 ^3/uL (0.4-5.4); Lymphocytes % (auto) 24.8 % (10.0-50.0); Mean Corpuscular Hgb Conc. 31.9 g/dL (32.0-36.0); Mean Corpuscular Volume 87.7 fL (80.0-100.0); Monocytes # (auto) 0.8 10 ^3/uL (0-1.3); Monocytes % (auto) 12.5 % (0.0-12.0); Neutrophils # (auto) 3.8 10 ^3/uL (1.6-8.6); Neutrophils % (auto) 61.1 % (37.0-80.0); Nucleated Red Blood Cells % 0.2 %; Red Blood Cells 4.67 10^6/uL (4.0-5.20); Red Cell Distribution Width 16.7 % (11.8-14.3); White Blood Cell 6.3 10^3/uL (4.4-10.8)
[2022-07-08 11:05] LABS: INR 1.57 (0.9-1.15); Partial Thromboplastin Time 30.8 sec (24.6-33.4)
[2022-07-08 11:18] LABS: Albumin 2.8 g/dL (3.4-5.0); BUN/Creatinine Ratio 25.2 (10.0-20.0); Calcium 8.6 mg/dL (8.5-10.1); Magnesium 2.2 mg/dL (1.6-2.6); Potassium 3.3 mmol/L (3.5-5.1)
[2022-07-08 11:21] LABS: Bilirubin, Total 1.7 mg/dL (0.2-1.0); Total Protein 6.6 g/dL (6.4-8.2)
[2022-07-08] MEDS ORDERED: cefTRIAXone 1GM/50ML D5W 50 ML IV ONE (12:30)
[2022-07-08] MEDS ORDERED: AZITHROMYCIN 500MG/ 250ML 250 ML IV ONE (12:30)
[2022-07-08] MEDS ORDERED: POTASSIUM EFFERVESENT TAB 25 MEQ PO ONE (12:30)
[2022-07-08] MEDS ORDERED: DOCUSATE SOD 100 MG CAP PO PRN (16:45)
[2022-07-08] MEDS ORDERED: MORPHINE SULFATE INJ 2 MG/ml SYRG IV PRN (16:45)
[2022-07-08] MEDS ORDERED: ONDANSETRON HCL 4 MG/2 ML VIAL IV PRN (16:45)
[2022-07-08] MEDS ORDERED: SODIUM CHLORIDE 0.9% 1,000 ML IV SCH (16:45)
[2022-07-08] MEDS: FUROSEMIDE 20 MG/2 ML VIAL IV SCH (18:48)
[2022-07-08] MEDS: NOREPINEPHRINE 8 MG/250ML KIT 250 ML IV SCH (19:06)
[2022-07-08] MEDS: ATORVASTATIN 20 MG TAB PO SCH (23:30)
[2022-07-08] MEDS: SACUBITRIL-VALSARTAN 24mg/26mg TAB PO SCH (23:30)
[2022-07-08] MEDS: APIXABAN 2.5 MG TAB PO SCH (23:30)
[2022-07-09 06:19] LABS: Basophils # (auto) 0.1 10 ^3/uL (0-0.2); Basophils % (auto) 0.8 % (0.0-2.0); Eosinophils # (auto) 0 10 ^3/uL (0-0.8); Eosinophils % (auto) 0.6 % (0.0-7.0); Hematocrit 39.8 % (36.0-46.0); Hemoglobin 13.2 g/dL (12.2-16.2); Lymphocytes % (auto) 25.7 % (10.0-50.0); Mean Corpuscular Hemoglobin 28.3 pg (28.0-32.0); Mean Corpuscular Hgb Conc. 33.2 g/dL (32.0-36.0); Monocytes % (auto) 12.4 % (0.0-12.0); Neutrophils # (auto) 4.7 10 ^3/uL (1.6-8.6); Neutrophils % (auto) 60.5 % (37.0-80.0); Nucleated Red Blood Cells % 0.2 %; Red Blood Cells 4.68 10^6/uL (4.0-5.20); Red Cell Distribution Width 16.3 % (11.8-14.3); White Blood Cell 7.8 10^3/uL (4.4-10.8)
[2022-07-09 06:27] LABS: Albumin 2.6 g/dL (3.4-5.0); Calcium 8.8 mg/dL (8.5-10.1); Potassium 3.3 mmol/L (3.5-5.1)
[2022-07-09 06:30] LABS: BUN/Creatinine Ratio 25.2 (10.0-20.0); Bilirubin, Total 1.5 mg/dL (0.2-1.0); Total Protein 6.6 g/dL (6.4-8.2)
[2022-07-09] MEDS: FUROSEMIDE 20 MG/2 ML VIAL IV SCH (06:49)
[2022-07-09] MEDS: SACUBITRIL-VALSARTAN 24mg/26mg TAB PO SCH ×2 (09:56→22:09)
[2022-07-09] MEDS: cefTRIAXone 1GM/50ML D5W 50 ML IV SCH (09:56)
[2022-07-09] MEDS: APIXABAN 2.5 MG TAB PO SCH ×2 (09:56→22:09)
[2022-07-09] MEDS: POTASSIUM CHL 10 Meq TABLET PO SCH (09:57)
[2022-07-09] MEDS: LEVOTHYROXINE SODIUM 50 MCG TAB PO SCH (09:57)
[2022-07-09] MEDS: METOPROLOL SUCCINATE XL 50 MG TAB PO SCH (09:58)
[2022-07-09] MEDS ORDERED: ENOXAPARIN SOD 40 MG/0.4 ML SYRINGE SC SCH (10:00)
[2022-07-09] MEDS ORDERED: METOPROLOL SUCCINATE XL 50 MG TAB PO SCH (10:00)
[2022-07-09 11:38] LABS: Urine Bacteria NONE SEEN /hpf (None Seen); Urine Blood 1+ /uL (Negative); Urine Specific Gravity 1.008 (1.001-1.035); Urine WBC 6 /hpf (0 - 5)
[2022-07-09] MEDS: FUROSEMIDE 40 MG/4 ML VIAL IV SCH (18:25)
[2022-07-09] MEDS: ATORVASTATIN 20 MG TAB PO SCH (22:08)
[2022-07-09] MEDS: NOREPINEPHRINE 8 MG/250ML KIT 250 ML IV SCH (22:28)
[2022-07-09] MEDS ORDERED: ALBUTEROL SULF 2.5 MG/0.5ML(0.5%) NEB SOLN NEB ONE (23:45)
[2022-07-10] MEDS: IPRATROPIUM BROM 0.5 MG/2.5ML INH SOL NEB PRN (00:20)
[2022-07-10] MEDS: ALBUTEROL SULF 2.5 MG/0.5ML(0.5%) NEB SOLN NEB PRN (00:21)
[2022-07-10 00:46] VITALS: BP 125/82
[2022-07-10] MEDS: FUROSEMIDE 40 MG/4 ML VIAL IV SCH ×2 (06:14→18:33)
[2022-07-10] MEDS: cefTRIAXone 1GM/50ML D5W 50 ML IV SCH (09:00)
[2022-07-10] MEDS: APIXABAN 2.5 MG TAB PO SCH ×2 (09:27→21:43)
[2022-07-10] MEDS: LEVOTHYROXINE SODIUM 50 MCG TAB PO SCH (09:28)
[2022-07-10] MEDS: POTASSIUM CHL 10 Meq TABLET PO SCH (09:28)
[2022-07-10] MEDS: METOPROLOL SUCCINATE XL 50 MG TAB PO SCH (09:29)
[2022-07-10] MEDS: SACUBITRIL-VALSARTAN 24mg/26mg TAB PO SCH ×2 (10:23→21:42)
[2022-07-10] MEDS ORDERED: VANCOMYCIN 1GM/250ML 250 ML IV ONE (15:30)
[2022-07-10] MEDS ORDERED: diphenhdrAMINE HCL 50 MG/1 ML VL IV ONE (16:15)
[2022-07-10] MEDS ORDERED: SACU1TAB7 PO (18:39)
[2022-07-10] MEDS ORDERED: SPIR25TA PO (18:39)
[2022-07-10 20:00] VITALS: BP 110/71
[2022-07-10] MEDS: ATORVASTATIN 20 MG TAB PO SCH (21:55)
[2022-07-10 22:00] VITALS: BP 124/81
[2022-07-11] VITALS (9 sets, daily range): BP systolic 82–124; BP diastolic 43–83
[2022-07-11] MEDS: FUROSEMIDE 40 MG/4 ML VIAL IV SCH ×2 (06:00→17:19)
[2022-07-11 07:51] LABS: Basophils # (auto) 0.1 10 ^3/uL (0-0.2); Basophils % (auto) 1.8 % (0.0-2.0); Eosinophils # (auto) 0.1 10 ^3/uL (0-0.8); Eosinophils % (auto) 1.6 % (0.0-7.0); Hemoglobin 11.8 g/dL (12.2-16.2); Lymphocytes # (auto) 1.3 10 ^3/uL (0.4-5.4); Lymphocytes % (auto) 19.6 % (10.0-50.0); Mean Corpuscular Hemoglobin 27.9 pg (28.0-32.0); Mean Corpuscular Hgb Conc. 32.8 g/dL (32.0-36.0); Mean Corpuscular Volume 84.9 fL (80.0-100.0); Monocytes # (auto) 0.6 10 ^3/uL (0-1.3); Monocytes % (auto) 8.7 % (0.0-12.0); Neutrophils # (auto) 4.6 10 ^3/uL (1.6-8.6); Neutrophils % (auto) 68.3 % (37.0-80.0); Nucleated Red Blood Cells % 0.3 %; Red Blood Cells 4.24 10^6/uL (4.0-5.20); Red Cell Distribution Width 16.2 % (11.8-14.3); White Blood Cell 6.7 10^3/uL (4.4-10.8)
[2022-07-11 08:04] LABS: BUN/Creatinine Ratio 30.3 (10.0-20.0); Calcium 8.4 mg/dL (8.5-10.1)
[2022-07-11 08:57] LABS: Potassium 2.9 mmol/L (3.5-5.1)
[2022-07-11] MEDS: cefTRIAXone 1GM/50ML D5W 50 ML IV SCH (09:28)
[2022-07-11] MEDS: APIXABAN 2.5 MG TAB PO SCH ×2 (09:28→21:16)
[2022-07-11] MEDS: SACUBITRIL-VALSARTAN 24mg/26mg TAB PO SCH ×2 (09:29→21:16)
[2022-07-11] MEDS: LEVOTHYROXINE SODIUM 50 MCG TAB PO SCH (09:29)
[2022-07-11] MEDS: METOPROLOL SUCCINATE XL 50 MG TAB PO SCH (09:29)
[2022-07-11] MEDS: VANCOMYCIN 1GM/250ML 250 ML IV SCH (09:30)
[2022-07-11] MEDS: POTASSIUM CHL 10 Meq TABLET PO SCH (09:30)
[2022-07-11] MEDS ORDERED: POTASSIUM CHL 20 Meq TABLET PO ONE (09:45)
[2022-07-11 12:14] LABS: INR 1.47 (0.9-1.15); Partial Thromboplastin Time 30.4 sec (24.6-33.4)
[2022-07-11] MEDS ORDERED: VANCOMYCIN PER PHARMACY 0 MG IV SCH (15:30)
[2022-07-11] MEDS: guaiFENesin-DM 100/10mg/5ml SYR PO PRN (17:21)
[2022-07-11] MEDS: ATORVASTATIN 20 MG TAB PO SCH (21:16)
[2022-07-12] VITALS (7 sets, daily range): BP systolic 103–123; BP diastolic 54–104
[2022-07-12] MEDS: FUROSEMIDE 40 MG/4 ML VIAL IV SCH ×2 (05:57→17:01)
[2022-07-12 06:06] LABS: Basophils # (auto) 0 10 ^3/uL (0-0.2); Basophils % (auto) 0.7 % (0.0-2.0); Eosinophils # (auto) 0.1 10 ^3/uL (0-0.8); Eosinophils % (auto) 1.2 % (0.0-7.0); Hematocrit 37.6 % (36.0-46.0); Hemoglobin 12.4 g/dL (12.2-16.2); Lymphocytes # (auto) 1.6 10 ^3/uL (0.4-5.4); Lymphocytes % (auto) 24.2 % (10.0-50.0); Mean Corpuscular Volume 87.8 fL (80.0-100.0); Monocytes # (auto) 0.7 10 ^3/uL (0-1.3); Monocytes % (auto) 10.9 % (0.0-12.0); Neutrophils # (auto) 4.1 10 ^3/uL (1.6-8.6); Nucleated Red Blood Cells % 0.1 %; Red Blood Cells 4.28 10^6/uL (4.0-5.20); Red Cell Distribution Width 17.2 % (11.8-14.3); White Blood Cell 6.4 10^3/uL (4.4-10.8)
[2022-07-12 06:20] LABS: Chloride 109 mmol/L (98-107); Potassium 3.9 mmol/L (3.5-5.1); Sodium 138 mmol/L (136-145)
[2022-07-12 06:28] LABS: Anion Gap 8 (5-15); BUN/Creatinine Ratio 32.2 (10.0-20.0); Blood Urea Nitrogen 28 mg/dL (7-18); Calcium 8.6 mg/dL (8.5-10.1); Carbon Dioxide 21 mmol/L (21-32); GFR African American 79 mL/min; GFR Non-African American 65 mL/min; Glucose 99 mg/dL (74-106)
[2022-07-12] MEDS: VANCOMYCIN 1GM/250ML 250 ML IV SCH (09:38)
[2022-07-12] MEDS: cefTRIAXone 1GM/50ML D5W 50 ML IV SCH (09:38)
[2022-07-12] MEDS: APIXABAN 2.5 MG TAB PO SCH ×2 (09:39→21:32)
[2022-07-12] MEDS: POTASSIUM CHL 10 Meq TABLET PO SCH (09:39)
[2022-07-12] MEDS: LEVOTHYROXINE SODIUM 50 MCG TAB PO SCH (09:39)
[2022-07-12] MEDS: METOPROLOL SUCCINATE XL 50 MG TAB PO SCH (09:39)
[2022-07-12] MEDS: guaiFENesin-DM 100/10mg/5ml SYR PO PRN (09:39)
[2022-07-12] MEDS: SACUBITRIL-VALSARTAN 24mg/26mg TAB PO SCH ×2 (09:39→21:32)
[2022-07-12] MEDS: ATORVASTATIN 20 MG TAB PO SCH (21:32)
[2022-07-13 05:00] VITALS: BP 118/64
[2022-07-13] MEDS: FUROSEMIDE 40 MG/4 ML VIAL IV SCH ×2 (05:54→17:57)
[2022-07-13 08:00] VITALS: BP 142/67
[2022-07-13 09:00] VITALS: BP_SYST 142; BP_DIAS 67; BP_DIAS 93
[2022-07-13] MEDS: cefTRIAXone 1GM/50ML D5W 50 ML IV SCH (09:46)
[2022-07-13] MEDS: APIXABAN 2.5 MG TAB PO SCH ×2 (09:47→22:52)
[2022-07-13] MEDS: SACUBITRIL-VALSARTAN 24mg/26mg TAB PO SCH ×2 (09:47→22:52)
[2022-07-13] MEDS: LEVOTHYROXINE SODIUM 50 MCG TAB PO SCH (09:47)
[2022-07-13] MEDS: METOPROLOL SUCCINATE XL 50 MG TAB PO SCH (09:49)
[2022-07-13] MEDS: POTASSIUM CHL 10 Meq TABLET PO SCH (10:00)
[2022-07-13] MEDS: VANCOMYCIN 1GM/250ML 250 ML IV SCH (10:11)
[2022-07-13] MEDS ORDERED: DIGOXIN (250MCG/ML) 2 ML AMPULE IV ONE (11:15)
[2022-07-13 12:26] LABS: BUN/Creatinine Ratio 31.3 (10.0-20.0); Calcium 8.8 mg/dL (8.5-10.1)
[2022-07-13 13:00] VITALS: BP 111/59
[2022-07-13 16:50] VITALS: BP 101/71
[2022-07-13] MEDS: ALBUTEROL SULF 2.5 MG/0.5ML(0.5%) NEB SOLN NEB PRN (18:49)
[2022-07-13] MEDS: IPRATROPIUM BROM 0.5 MG/2.5ML INH SOL NEB PRN (18:49)
[2022-07-13 22:00] VITALS: BP 129/81
[2022-07-13] MEDS: ATORVASTATIN 20 MG TAB PO SCH (22:52)
[2022-07-14 04:48] VITALS: BP 127/80
[2022-07-14] MEDS: FUROSEMIDE 40 MG/4 ML VIAL IV SCH (06:42)
[2022-07-14] MEDS ORDERED: EMPAGLIFLOZIN 10 MG TAB PO SCH (07:00)
[2022-07-14 08:34] VITALS: BP 129/89
[2022-07-14] MEDS: SACUBITRIL-VALSARTAN 24mg/26mg TAB PO SCH (09:35)
[2022-07-14] MEDS: POTASSIUM CHL 10 Meq TABLET PO SCH (09:35)
[2022-07-14] MEDS: METOPROLOL SUCCINATE XL 50 MG TAB PO SCH (09:37)
[2022-07-14] MEDS: APIXABAN 2.5 MG TAB PO SCH (09:38)
[2022-07-14] MEDS: LEVOTHYROXINE SODIUM 50 MCG TAB PO SCH (09:38)
[2022-07-14] MEDS ORDERED: DIGOXIN 0.125 MG TAB PO SCH (10:00)
[2022-07-14] MEDS ORDERED: DOXYCYCLINE 100 MG TAB/CAP PO SCH (10:45)
[2022-07-14] MEDS: cefTRIAXone 1GM/50ML D5W 50 ML IV SCH (10:54)
[2022-07-14] MEDS ORDERED: POTA10TA32 PO (11:39)
[2022-07-14 12:42] VITALS: BP 135/70
[2022-07-14] MEDS ORDERED: DIGO1TAB48 PO (14:17)
[2022-07-14] MEDS ORDERED: DOX100T PO (14:17)
[2022-07-14 16:47] VITALS: BP 134/81
== END 2022-07-14 17:50 | disposition home health service (06) | DRG 193 ==
LOC: ER 10:13 → TELE 16:45 → TELE-WESTW 07-10 17:50
PROVIDERS: ADMIT Nurse Practitioner Family; ATTEND Internal Medicine
DX: J18.9 Pneumonia, unspecified organism (principal); E43 Unspecified severe protein-calorie malnutrition; I50.43 Acute on chronic combined systolic (congestive) and diastolic (congestive) heart failure; J96.21 Acute and chronic respiratory failure with hypoxia; N17.9 Acute kidney failure, unspecified; I42.9 Cardiomyopathy, unspecified; I11.0 Hypertensive heart disease with heart failure; E03.9 Hypothyroidism, unspecified; E87.6 Hypokalemia; E78.00 Pure hypercholesterolemia, unspecified; N61.0 Mastitis without abscess; H91.90 Unspecified hearing loss, unspecified ear; I07.1 Rheumatic tricuspid insufficiency; I48.91 Unspecified atrial fibrillation; E11.9 Type 2 diabetes mellitus without complications; E66.9 Obesity, unspecified; Z68.33 Body mass index [BMI] 33.0-33.9, adult; Z95.0 Presence of cardiac pacemaker; Z87.01 Personal history of pneumonia (recurrent); Z79.01 Long term (current) use of anticoagulants
CPT/HCPCS: 36415; 71045; 80048; 80053; 80202; 81001; 82962; 83735; 83880; 84484; 85025; 85610; 85730; 87040; 87077; 87086; 87186; 93005; 94640; 96365; 96366; 96367; 96368; 96375; 97110; 97116; 97163; 97530; 99291; G0378; J0696; J2405